=== PATIENT | female | born 1990 | race Caucasian/White ===

== ENCOUNTER 2016-12-18 11:09 | Emergency (ER) | payer BC, OTHER ==
[2016-12-18 11:37] VITALS: BP 107/78; PULSE 85; TEMP 99; BMI 22.8
--- NOTE | 2016-12-18 13:22 | PDOC ---
History of Present Illness - General Chief Complaint: RX Refill Stated Complaint: RX REFILL Time Seen by Provider: 12/18/16 12:50 History Source: Patient Exam Limitations: No Limitations - History of Present Illness Initial Comments: 12/18/16 13:22 My Chief complaint: Out of Synthroid History of present illness: Patient is a 26-year-old female with a history of bipolar disorder and hypothyroidism here today due to being out of her prescription for Synthroid. Patient reports that she recently moved from [facility] and has not been able to get a primary care provider due to issues with her insurance not improving the primary care provider she has chosen. Patient reports that they are working on it. Patient plans on seeing Dr. Brandon Steele in the near future. Patient didn't denies any symptoms except for feeling slightly more tired than usual. Timing/Duration: other (out of her synthroid for 5 days ) Severity: mild Associated Symptoms: reports: denies symptoms Past History - Past Medical History Allergies/Adverse Reactions: Allergies Allergy/AdvReac Type Severity Reaction Status Date / Time latex Allergy Rash Verified 12/18/16 11:32 amoxicillin AdvReac Intermediate Vomiting Verified 12/18/16 11:32 Home Medications: Ambulatory Orders Levothyroxine [Synthroid -] 50 mcg PO DAILY 12/18/16 Levothyroxine [Synthroid -] 50 mcg PO DAILY #30 tablet 12/18/16 [place] Carbonate [Lithobid] 300 mg PO ASDIR 12/18/16 Quetiapine Fumarate [Seroquel -] 50 mg PO HS 12/18/16 Psychiatric Problems: Yes (BIPOLAR) Thyroid Disease: Yes (HYPO) - Suicide/Smoking/Psychosocial Hx Smoking History: Never smoked Review of Systems - Review of Systems Able to Perform ROS?: Yes Constitutional: No: Symptoms Reported HEENTM: No: Symptoms Reported Respiratory: No: Symptoms reported Cardiac (ROS): No: Symptoms Reported ABD/GI: No: Symptoms Reported : No: Symptoms Reported Musculoskeletal: No: Symptoms Reported Integumentary: No: Symptoms Reported Neurological: No: Symptoms reported *Physical Exam - Vital Signs Last Vital Signs Temp Pulse Resp BP Pulse Ox 99 F 85 19 107/78 97 12/18/16 11:32 12/18/16 11:32 12/18/16 11:32 12/18/16 11:32 12/18/16 11:32 - Physical Exam General Appearance: Yes: Appropriately Dressed Neck: negative: Tender, Lymphadenopathy (R), Lymphadenopathy (L), Rigidity, Tender lateral, Tender midline, Thyromegaly Respiratory/Chest: positive: Lungs Clear, Normal Breath Sounds. negative: Chest Tender, Respiratory Distress Cardiovascular: positive: Regular Rhythm, Regular Rate, S1, S2 Integumentary: positive: Normal Color Neurologic: positive: Alert, Normal Response, Responsive Medical Decision Making - Medical Decision Making 12/18/16 13:23 Patient is a 26-year-old female with a history of bipolar disorder and hypothyroidism here today due to being out of her prescription for Synthroid. Patient reports that she recently moved from [facility] and has not been able to get a primary care provider due to issues with her insurance not improving the primary care provider she has chosen. Patient reports that they are working on it. Patient plans on seeing Dr. Brandon Steele in the near future. Patient didn't denies any symptoms except for feeling slightly more tired than usual. RX refill needed for synthroid PLAN: synthroid 50 mcg daily # 30 tabs follow up with PCP *DC/Admit/Observation/Transfer Diagnosis at time of Disposition: Difficulty refilling prescriptions - Discharge Dispostion Disposition: HOME Condition at time of disposition: Stable - Patient Instructions Additional Instructions: Follow-up with your primary care provider as soon as possible Return to emergency room if any medical issues develop Patient voiced understanding of discharge instructions and all questions were answered
== END 2016-12-18 13:28 | disposition home or self-care (01) ==
LOC: JERFT 11:09
DX: E03.9 Hypothyroidism, unspecified (principal); F31.9 Bipolar disorder, unspecified
CPT/HCPCS: 99281-25

== ENCOUNTER 2017-11-26 07:59 | Emergency (ER) | payer SELFPAY ==
[2017-11-26 08:05] VITALS: BMI 25.7
--- NOTE | 2017-11-26 09:25 | PDOC ---
History of Present Illness - General Chief Complaint: Pain Stated Complaint: ABD,BACK PAIN Time Seen by Provider: 11/26/17 08:36 - History of Present Illness Initial Comments: 27 y/o F w/PMH of bipolar d/o, endometriosis, asthma, hypothyroidism (no longer on levothyroxine) presents to the ER with lower abdominal pain and back pain for the last 2-3 weeks. Pain has been about the same over this time period and rated at 8/10 in abdomen with no radiation, is crampy. Standing makes the back pain better but worsens the abdominal pain. Able to tolerate diet. Denies fevers, chills. Highest recorded temp was 99 at home. +Nausea, vomited x1 episode last night clears, no blood, probably water that she drank. Cycles b/w constipation and diarrhea over the last few weeks. No BMs at night. Has not noticed blood in stool. Last BM was last night and was soft. Adopted so does not completely know her family history. Had EGD at age 17 and found ulcers. Had EGD for GERD symptoms. Sexually active, has IUD, uses protection. LMP ended 2-3 days ago. Regular cycles. No dysmenorrhea. Had blood test few weeks ago showed vitamin deficiencies and low lithium levels despite taking vitamins and lithium daily. Appetite is good. Gaining weight despite trying to lose weight. Sick contacts at work with cold symptoms and has had a cold on and off for many months now. No sick contacts with anyone with GI symptoms. No blood in urine or dysuria. Reports chest pain last night that was in center of chest with no radiation and stopped at end of sternum. Not currently with chest pain. Reports SOB when she coughs. Cough at times dry and at times productive. Has heard wheezing recently when coughing. Reports fatigue over the last few months as well. [facility] and abd ultrasound which revealed resolution of an ovarian cyst. PMH:bipolar d/o, endometriosis, asthma, hypothyroidism (no longer on levothyroxine) PSHx: B/L knee surgeries. L hip surgery as a child for staph infection. FH: Not well known. Pt is adopted. SH: Never smoker. Denies drug use. Drinks alcohol socially on some weekends. Allergies: NKDA Past History - Past Medical History Allergies/Adverse Reactions: Allergies Allergy/AdvReac Type Severity Reaction Status Date / Time latex Allergy Rash Verified 11/26/17 08:01 amoxicillin AdvReac Intermediate Vomiting Verified 11/26/17 08:01 Home Medications: Ambulatory Orders [place] Carbonate [Lithobid] 750 mg PO ASDIR 12/18/16 COPD: No Psychiatric Problems: Yes (BIPOLAR) Thyroid Disease: Yes (HYPO) Other medical history: ovarian cyst, endometriosis - Reproductive History LMP comment: 2-3 days ago LMP Normal: Yes Endometriosis: Yes - Suicide/Smoking/Psychosocial Hx Smoking History: Never smoked Have you smoked in the past 12 months: No Information on smoking cessation initiated: No Hx Alcohol Use: Yes (social) Drug/Substance Use Hx: No Substance Use Type: None Review of Systems - Review of Systems Able to Perform ROS?: Yes Constitutional: Yes: Fever (subjective. Highest recorded temp at home 99.), Other (Fatigue). No: Chills HEENTM: Yes: Other (Rhinorrhea) Respiratory: Yes: Cough, Shortness of Breath, Wheezing, Productive cough. No: SOB at Rest Cardiac (ROS): Yes: Chest Pain (As described in HPI) ABD/GI: Yes: Constipated, Diarrhea, Nausea, Vomiting, Abdominal cramping. No: Blood Streaked Bowels, Rectal Bleeding : Yes: Flank Pain. No: Dysuria, Hematuria Musculoskeletal: Yes: Back Pain Neurological: No: Unsteady Gait Psychiatric: No: Change in Appetite Endocrine: Yes: Unexplained Weight Gain *Physical Exam - Vital Signs Last Vital Signs Temp Pulse Resp BP Pulse Ox 99.1 F 104 H 18 111/78 100 11/26/17 08:01 11/26/17 08:01 11/26/17 08:01 11/26/17 08:01 11/26/17 08:01 - Physical Exam General Appearance: Yes: Appropriately Dressed. No: Apparent Distress HEENT: positive: EOMI, Rhinorrhea. negative: Scleral Icterus (R), Scleral Icterus (L) Neck: positive: Supple Respiratory/Chest: positive: Lungs Clear, Normal Breath Sounds. negative: Respiratory Distress, Accessory Muscle Use, Crackles, Rales, Rhonchi, Wheezing Cardiovascular: positive: Regular Rhythm, Regular Rate, S1, S2. negative: Edema , Murmur, Bradycardia Female Pelvic Exam: positive: discharge (yellow d/c at cervical os), adnexal tenderness, other (+cervical motion tenderness. White cottage cheese like discharge in vaginal cavity as well.) Gastrointestinal/Abdominal: positive: Tender (RLQ>LLQ), Soft. negative: Normal Bowel Sounds (HYPOACTIVE BS) Musculoskeletal: positive: CVA Tenderness (R sided CVA but can be MSK in nature instead.). negative: Muscle Spasm Neurologic: positive: Fully Oriented, Alert, Normal Mood/Affect, Normal Response ED Treatment Course - LABORATORY CBC & Chemistry Diagram: 11/26/17 09:22 11/26/17 09:22 Medical Decision Making - Medical Decision Making 11/26/17 09:25 Will check CBC, CMP, Lipase, EKG, TSH, [place] level, UA, Urine HCG for Pt is without distress at this time and laying comfortably in bed with mild nausea. 11/26/17 10:08 EKG shows NSR @ 61 bpm. TWI in III. No ST segment changes noted. Bimanual pelvic and speculum exam done with medical student at bedside (Razia Valente) w/ pt consent. Pt with very mild cervical motion tenderness and mild adnexal tenderness, pt states similar discomfort with previous exams. Speculum exam revealed some whitish discharge vaginal cavity and yellow fluid d/c at cervical os. Culture taken and sent in for G/C culture. TV ultrasound ordered. 11/26/17 10:45 UA w/1+LE and 7WBC but pt w/o UTI symptoms. Will send in UCx though at this time. 11/26/17 11:30 TV ultrasound shows R follicular ovarian cyst measuring 1.4 x 1.1 x 1.0 cm and IUD in place. Pt with no fever, no white count with long history of similar symptoms. Pt to be discharged home. To come back to ER if worsening symptoms. To f/u with PCP and GI (Dr. Mcgregor) as outpatient for possible IBS vs IBD. [facility] *DC/Admit/Observation/Transfer Diagnosis at time of Disposition: Abdominal pain - Discharge Dispostion Disposition: HOME Condition at time of disposition: Stable - Referrals Referrals: Brandon Gonzalez MD [Primary Care Provider] - Tino Mcgregor MD [Staff Physician] - Vipul Odonnell MD [Staff Physician] - ([facility] - Patient Instructions Additional Instructions: Follow up with your primary care doctor or you can go to [facility] to see primary care. [phone] Follow up with a GI doctor. Dr. [facility]. Your lithium levels are still pending. Your Chlamydia and gonorrhea cultures are still pending. - Post Discharge Activity Forms/Work/School Notes: Back to Work
[2017-11-26 09:50] LABS: BASO % 0.8 % (0-2.0); EOS % 7.7 % (0-4.5); HEMATOCRIT 42.5 % (32.4-45.2); HEMOGLOBIN 14.4 GM/dL (10.7-15.3); LYMPH % 29.9 % (8-40); MCHC 33.7 g/dl (32.0-36.0); MEAN PLT VOLUME 8.5 fl (7.5-11.1); MONO % 4.7 % (3.8-10.2); NEUT % 56.9 % (42.8-82.8); PLATELET COUNT 282 K/MM3 (134-434); RBC 4.78 M/mm3 (3.60-5.2); RDW 13.9 % (11.6-15.6); WHITE BLOOD COUNT 6.9 K/mm3 (4.0-10.0)
[2017-11-26 09:58] LABS: HCG,QUALITATIVE URINE Negative
[2017-11-26 10:13] LABS: URINE APPEARANCE CLEAR; URINE BILIRUBIN NEGATIVE (<2.0 mg/dL); URINE COLOR LTYELLOW; URINE GLUCOSE (UA) NEGATIVE (NEGATIVE); URINE KETONE NEGATIVE (NEGATIVE); URINE LEUK ESTERASE 1+ (NEGATIVE); URINE NITRITE NEGATIVE (NEGATIVE); URINE PROTEIN NEGATIVE (NEGATIVE); URINE UROBILINOGEN NEGATIVE mg/dL (0.2-1.0)
[2017-11-26 10:18] LABS: EPI CELLS FEW /HPF (FEW); URINE MUCUS RARE
[2017-11-26 10:29] LABS: ALBUMIN 3.8 g/dl (3.4-5.0); ALK PHOS 93 U/L (45-117); ANION GAP 11 MMOL/L (8-16); BILIRUBIN,TOTAL 0.6 mg/dL (0.2-1); BLOOD UREA NITROGEN 8 mg/dL (7-18); CALCIUM 9.1 mg/dL (8.5-10.1); CHLORIDE 107 mmol/L (98-107); CO2 24 mmol/L (21-32); CREATININE 0.5 mg/dL (0.55-1.3); GLUCOSE,RANDOM 86 mg/dL (74-106); LIPASE 57 U/L (73-393); POTASSIUM 4.3 mmol/L (3.5-5.1); SGOT/AST 14 U/L (15-37); SGPT/ALT 18 U/L (13-61); SODIUM 143 mmol/L (136-145); TOT PROT 7.5 g/dl (6.4-8.2)
[2017-11-26 12:14] VITALS: BP 119/75; PULSE 71; TEMP 98.1
--- NOTE | 2017-11-26 14:32 | EKG ---
Test Reason : Blood Pressure : / mmHG Vent. Rate : 061 BPM Atrial Rate : 061 BPM P-R Int : 136 ms QRS Dur : 082 ms QT Int : 392 ms P-R-T Axes : 036 053 -06 degrees QTc Int : 394 ms NORMAL SINUS RHYTHM WITH SINUS ARRHYTHMIA INFERIOR T WAVE ABNORMALITY ABNORMAL ECG NO PREVIOUS ECGS AVAILABLE Confirmed by JAYSHREE ESRNA MD ([id number]) on 11/26/2017 2:32:13 PM Referred By: Confirmed By:JAYSHREE SERNA MD
--- NOTE | 2017-11-26 17:03 | PDOC ---
Attending Attestation - Resident Resident Name: José Morales - ED Attending Attestation I have performed the following: I have examined & evaluated the patient, The case was reviewed & discussed with the resident, I agree w/resident's findings & plan, Exceptions are as noted <Pipe Roberts - Last Filed: 11/26/17 17:02> - HPI HPI: 11/26/17 17:04 The patient is a 27 year old female, with a significant PMH of bipolar disorder , endometriosis, asthma, hypothyroidism, who presents to the emergency department with 3 weeks of intermittent lower abdominal pain and back pain. The patient describes the lower abdominal pain as crampy, rated 8/10, non radiating , worsened with standing and no alleviating factors. The patient states that standing makes the lower back pain better. The patient states her LMP was 3 days ago which was normal. The patient also endorses nausea with one episode of emesis (non bloody, non bilious) last night and intermittent diarrhea/ constipation over the past few weeks. The patient also states that last night she had an episode of chest pain, non radiating, located in the center region of her chest which has since resolved on its own. The patient also endorses intermittent shortness of breath secondary to a chronic dry cough for which she states she has intermittent cold-like symptoms for the past few months. The patient denies headache and dizziness. Denies fever, chills. Denies dysuria , frequency, urgency and hematuria. Allergies: latex, amoxicillin Social history: Social EtOH use, no tobacco or recreational drug use. PCP: Dr Brandon Gonzalez - Physicial Exam PE: 11/26/17 17:04 Vitals: Triage vital signs reviewed General Appearance: No acute distress, well nourished, well developed Head: Atraumatic Neck: Supple; No nuchal rigidity Chest Wall: Nontender Cardiac: Regular rate and rhythm, no murmurs, no rubs, no gallops Lungs: Clear to auscultation bilateral, good air movement bilaterally Abdomen: (+) Right lower quadrant tenderness and left lower quadrant tenderness , R>L. (+) Hypoactive bowel sounds. Soft, nondistended. Rectal: Exam deferred Extremities: Full range of motion to all extremities, no cyanosis, clubbing, or edema Skin: Warm and dry, no rashes or lesions, no rash, no petechiae Neuro: AOX3; Cranial Nerves 2-12 grossly intact, Strength intact to all extremities, Sensation intact to all extremities Psych: Normal mood, normal affect - Medical Decision Making 11/26/17 17:04 Patient is a 27 year old female, with a history of bipolar disorder, endometriosis, asthma, hypothyroidism, presents to the emergency department with 3 weeks of intermittent lower abdominal pain and back pain. Plan: EKG, Labs/ Blood work. <Lance Patrick - Last Filed: 11/26/17 17:05> Attestations - Attestations 11/26/17 17:05 Documentation prepared by Lance Patrick, acting as medical planner for Pipe Roberts MD. <Lance Patrick - Last Filed: 11/26/17 17:05>
== END 2017-11-26 12:18 | disposition home or self-care (01) ==
LOC: JER 07:59
DX: N83.201 Unspecified ovarian cyst, right side (principal); R10.30 Lower abdominal pain, unspecified; F31.9 Bipolar disorder, unspecified; E03.9 Hypothyroidism, unspecified; J45.909 Unspecified asthma, uncomplicated
CPT/HCPCS: 36415; 76830-TC; 80053; 80178; 81003; 81015; 83690; 84443; 84703; 85025; 87081; 87086; 93005; 93010; 99283-25

== ENCOUNTER 2017-12-09 10:05 | Day surgery (SDC) | payer OTHER ==
[2017-12-01 12:56] VITALS: BMI 25.6
[2017-12-09 10:27] VITALS: TEMP 98.9
[2017-12-09] MEDS ORDERED: PROPOFOL 20 ML ONE (10:37)
[2017-12-09 12:33] VITALS: BP 100/64; PULSE 81
--- NOTE | 2017-12-11 14:26 | PATH ---
Surgical Pathology Report Patient Name: EDDIE ROWAN [facility]. Rec. #: [id number] /Age/Gender: 1990 (Age: 27) / F Account: [id number] [facility] Taken: 12/09/2017 Received: 12/09/2017 Reported: 12/11/2017 Physicians: Catia Hamm M.D. Specimen(s) Received A: DUODENUM B: ANTRUM C: GE JUNCTION Clinical History Abdominal pain Postoperative diagnosis: Rule out celiac disease, gastritis, rule out Damon's esophagus, rule out H. Pylori Final Diagnosis A. DUODENUM, BIOPSY: MILD CHRONIC DUODENITIS. Note: Features suggestive of celiac disease are not identified in this biopsy. B. ANTRUM, BIOPSY: MILD CHRONIC GASTRITIS. IMMUNOSTAIN IS NEGATIVE FOR H. PYLORI ORGANISMS. C. GE JUNCTION, BIOPSY: ESOPHAGOGASTRIC JUNCTIONAL (SQUAMOCOLUMNAR) MUCOSA SHOWING MODERATE ACUTE AND CHRONIC INFLAMMATION AND FEATURES OF REFLUX ESOPHAGITIS. NEGATIVE FOR INTESTINAL METAPLASIA. Electronically Signed Vianney Burrows M.D. Gross Description A. Received in formalin, labeled "duodenum" is a ramirez, irregular portion of soft tissue measuring 0.4 cm. in greatest dimension. The specimen is submitted in toto in one cassette. B. Received in formalin, labeled "antrum" is a ramirez, irregular portion of soft tissue measuring 0.7 cm. in greatest dimension. The specimen is submitted in toto in one cassette. C. Received in formalin, labeled "GE junction" is a ramirez, irregular portion of soft tissue measuring 0.4 cm. in greatest dimension. The specimen is submitted in toto in one cassette. /12/09/2017 saudi12/09/2017
== END 2017-12-09 12:00 | disposition home or self-care (01) ==
LOC: FASU 10:05
PROVIDERS: ATTEND Internal Medicine Gastroenterology
PROC: 0DB48ZX Excision of Esophagogastric Junction, Via Natural or Artificial Opening Endoscopic, Diagnostic (ICD-10-PCS; 2017-12-09)
PROC: 0DB98ZX Excision of Duodenum, Via Natural or Artificial Opening Endoscopic, Diagnostic (ICD-10-PCS; principal; 2017-12-09 11:12)
PROC: 0DB68ZX Excision of Stomach, Via Natural or Artificial Opening Endoscopic, Diagnostic (ICD-10-PCS; 2017-12-09 11:12)
DX: D50.9 Iron deficiency anemia, unspecified (principal); K29.50 Unspecified chronic gastritis without bleeding; K29.80 Duodenitis without bleeding; K21.0 Gastro-esophageal reflux disease with esophagitis; R10.9 Unspecified abdominal pain
CPT/HCPCS: 84703; 88305-TC; 88342-TC

== ENCOUNTER 2020-11-07 19:00 | Emergency (ER) | payer OTHER ==
[2020-11-07 19:08] VITALS: BP 119/89; PULSE 86; TEMP 98.7; BMI 26.1
[2020-11-07] MEDS ORDERED: ACETAMINOPHEN 500 MG TABLET (FP) PO ONE (19:58)
[2020-11-07] MEDS ORDERED: METOCLOPRAMIDE HCL 10 MG TABLET (FP) PO ONE ×2 (19:58→20:06)
[2020-11-07] MEDS ORDERED: ACETAMINOPHEN 325 MG TABLET (FP) ONE (20:06)
== END 2020-11-07 21:17 | disposition home or self-care (01) ==
LOC: JER 19:00
DX: S09.90XA Unspecified injury of head, initial encounter (principal); S06.0X9A Concussion with loss of consciousness of unspecified duration, initial encounter; W01.0XXA Fall on same level from slipping, tripping and stumbling without subsequent striking against object, initial encounter
CPT/HCPCS: 70450-TC; 99284-25

== ENCOUNTER 2022-10-06 11:00 | Emergency (ER) | payer OTHER ==
[2022-10-06 11:19] VITALS: TEMP 98.1; BMI 32.1
[2022-10-06] MEDS ORDERED: SODIUM CHLORIDE 0.9% 500 ML INFUS.BAG IV ONE (11:47)
[2022-10-06] MEDS ORDERED: ACETAMINOPHEN 1000 MG/100 ML BAG IVPB ONE (11:59)
[2022-10-06] MEDS ORDERED: FAMOTIDINE 20 MG/50 ML IVPB 20 MG/50 ML MG IVPB ONE ×2 (11:59→13:03)
[2022-10-06] MEDS ORDERED: ONDANSETRON 4 MG/2 ML VIAL IVPB ONE (11:59)
[2022-10-06] MEDS ORDERED: ONDANSETRON 4 MG/2 ML VIAL ONE (13:03)
[2022-10-06] MEDS ORDERED: ACETAMINOPHEN INJECTION 100 ML IVPB ONE (13:03)
[2022-10-06 13:04] LABS: BASO % 0.3 % (0-2.0); EOS % 2.7 % (0-4.5); HEMATOCRIT 38.2 % (32.4-45.2); HEMOGLOBIN 12.8 GM/dL (10.7-15.3); LYMPH % 25.5 % (8-40); MCH 27.7 pg (25.7-33.7); MCHC 33.5 g/dl (32.0-36.0); MEAN CELL VOLUME 82.7 fl (80-96); MEAN PLT VOLUME 7.5 fl (7.5-11.1); MONO % 5.3 % (3.8-10.2); NEUT % 66.2 % (42.8-82.8); PLATELET COUNT 388 10^3/uL (134-434); RBC 4.61 M/mm3 (3.60-5.2); RDW 14.9 % (11.6-15.6); WHITE BLOOD COUNT 9.8 K/mm3 (4.0-10.0)
[2022-10-06 13:13] LABS: POTASSIUM 4.3 mmol/L (3.5-5.1)
[2022-10-06 13:16] LABS: BLOOD UREA NITROGEN 7.9 mg/dL (7-18); CALCIUM 8.9 mg/dL (8.5-10.1)
[2022-10-06 13:18] LABS: ALBUMIN 3.8 g/dl (3.4-5.0)
[2022-10-06 13:19] LABS: CREATININE 0.7 mg/dL (0.55-1.3)
[2022-10-06 13:21] LABS: BILIRUBIN,TOTAL 0.4 mg/dL (0.2-1); TOT PROT 7.3 g/dl (6.4-8.2)
[2022-10-06 15:34] VITALS: BP 113/76; PULSE 78; RESP 16
== END 2022-10-06 16:48 | disposition home or self-care (01) ==
LOC: JER 11:05
PROC: 3E033GC Introduction of Other Therapeutic Substance into Peripheral Vein, Percutaneous Approach (ICD-10-PCS; principal; 2022-10-06)
PROC: 3E033NZ Introduction of Analgesics, Hypnotics, Sedatives into Peripheral Vein, Percutaneous Approach (ICD-10-PCS; 2022-10-06)
PROC: 3E033GC Introduction of Other Therapeutic Substance into Peripheral Vein, Percutaneous Approach (ICD-10-PCS; 2022-10-06)
DX: R19.7 Diarrhea, unspecified (principal); R11.10 Vomiting, unspecified; R53.1 Weakness
CPT/HCPCS: 36415; 80053; 83690; 84703; 85025; 99284-25

== ENCOUNTER 2023-09-02 10:16 | Day surgery (SDC) | payer OTHER ==
[2023-09-01 13:13] VITALS: BMI 32.5
[2023-09-02 10:57] VITALS: TEMP 98
[2023-09-02] MEDS ORDERED: PROPOFOL 80 ML ONE (11:39)
[2023-09-02 11:56] VITALS: PULSE 71; RESP 16
[2023-09-02 12:15] VITALS: BP 111/74
== END 2023-09-02 12:21 | disposition home or self-care (01) ==
LOC: FASU-ENDO 10:16
PROVIDERS: ATTEND Internal Medicine Gastroenterology
PROC: 0DBL8ZX Excision of Transverse Colon, Via Natural or Artificial Opening Endoscopic, Diagnostic (ICD-10-PCS; 2023-09-02)
PROC: 0DBP8ZX Excision of Rectum, Via Natural or Artificial Opening Endoscopic, Diagnostic (ICD-10-PCS; 2023-09-02)
PROC: 0DBB8ZX Excision of Ileum, Via Natural or Artificial Opening Endoscopic, Diagnostic (ICD-10-PCS; 2023-09-02)
PROC: 0DBM8ZX Excision of Descending Colon, Via Natural or Artificial Opening Endoscopic, Diagnostic (ICD-10-PCS; 2023-09-02)
PROC: 0DBK8ZX Excision of Ascending Colon, Via Natural or Artificial Opening Endoscopic, Diagnostic (ICD-10-PCS; principal; 2023-09-02 11:30)
DX: R19.7 Diarrhea, unspecified (principal); K64.1 Second degree hemorrhoids
CPT/HCPCS: 81025; 88305-TC